=== PATIENT | female | born 1995 | race Hispanic/Latino ===

== ENCOUNTER 2020-02-04 20:45 | Inpatient (IN) | payer MEDICAID, OTHER ==
[~2020-02-04] VITALS: Ht 152.4 cm; Wt 69.4 kg
[2020-02-04] MEDS ORDERED: ONDANSETRON HCL 4 MG/2 ML VIAL ONE ×2 (21:10→23:15)
[2020-02-04 21:15] LABS: BASOPHILS % (AUTO) 0.5 % (0.0-5.0); EOSINOPHILS % (AUTO) 1.2 % (0.0-8.0); HEMATOCRIT 33.3 % (36-48); LYMPHOCYTES % (AUTO) 18.4 % (21.0-51.0); MEAN CORPUSCULAR HEMOGLOBIN 31.9 pg (27.0-33.0); MEAN CORPUSCULAR HGB CONC 36.3 g/dL (32.0-36.0); MEAN CORPUSCULAR VOLUME 87.9 fL (79-99); MONOCYTES % (AUTO) 4.2 % (3.0-13.0); NEUTROPHILS % (AUTO) 75.3 % (40.0-77.0); PLATELET COUNT (AUTO) 347 K/uL (130-400); RED BLOOD CELL COUNT(AUTO) 3.79 MIL/uL (4.00-5.50); RED CELL DISTRIBUTION WIDTH 11.4 % (11.0-15.5); WHITE BLOOD COUNT (AUTO) 18.4 K/uL (4.8-10.8)
[2020-02-04 21:26] LABS: CARBON DIOXIDE 26 mmol/L (21-32); CHLORIDE 101 mmol/L (101-111); CREATININE 0.8 mg/dL (0.5-1.5); GLOMERULAR FILTR. RATE CALC 94 mL/min (>60); GLUCOSE,RANDOM 132 mg/dL (70-105); SODIUM SERUM 139 mmol/L (136-145); UREA NITROGEN, BLOOD 12 mg/dL (7-18)
[2020-02-04 21:53] LABS: ALANINE AMINOTRANSFERASE 15 U/L (12-78); ALBUMIN 4.2 g/dL (3.5-5.0); AMYLASE 55 U/L (25-115); ASPARTATE AMINOTRANSFERASE 12 U/L (10-37); BILIRUBIN,TOTAL 0.3 mg/dL (0.2-1.0); HCG,QUANTITATIVE 12546 mIU/mL (0-5); LIPASE 175 U/L (114-286); TOTAL PROTEIN, SERUM 7.4 g/dL (6.0-8.3)
[2020-02-04 21:54] LABS: ALCOHOL, BLOOD < 3 mg/dL (0-10)
[2020-02-04] MEDS ORDERED: CEFAZOLIN SODIUM 1 GM VIAL ONE (22:29)
[2020-02-04] MEDS ORDERED: SODIUM CHLORIDE 0.9% 50 ML IV ONE (22:30)
[2020-02-04] MEDS ORDERED: LIDOCAINE PF 2% 5ML ABBOJECT ONE (23:14)
[2020-02-04] MEDS ORDERED: MIDAZOLAM HCL 1 MG/ML 2ML VIAL ONE (23:14)
[2020-02-04] MEDS ORDERED: DEXAMETHASONE SOD PHOSPHATE 10MG/ML 1ML VIAL ONE (23:14)
[2020-02-04] MEDS ORDERED: SUCCINYLCHOLINE 200MG/10ML SYR ONE (23:14)
[2020-02-04] MEDS ORDERED: FENTANYL CITRATE PF 50 MCG/1 ML 2ML VIAL ONE (23:15)
[2020-02-04] MEDS ORDERED: PROPOFOL 10 MG/ML 20ML VIAL IV ONE (23:15)
[2020-02-04] MEDS ORDERED: ROCURONIUM 10MG/1ML SYR 10 MG/ML ML ONE (23:24)
[2020-02-04 23:33] LABS: HEMATOCRIT 28.1 % (36-48)
[2020-02-04] MEDS ORDERED: ALBUMIN (HUMAN) 5% 250 ML IV ONE (23:39)
[2020-02-04] MEDS ORDERED: EPHEDRINE SULFATE 50 MG/ML AMPULE ONE (23:47)
[2020-02-05] VITALS (21 sets, daily range): BP systolic 98–141; BP diastolic 54–77
[2020-02-05] MEDS ORDERED: NEOSTIGMINE 5MG/5ML SYR IV ONE (00:03)
[2020-02-05] MEDS ORDERED: GLYCOPYRROLATE 1 MG/5 ML SYRINGE ONE (00:03)
[2020-02-05] MEDS ORDERED: MEPERIDINE-PF 25 MG/ML SYG ONE ×2 (00:25→00:36)
[2020-02-05] MEDS ORDERED: FENTANYL CITRATE PF 50 MCG/1 ML 2ML VIAL ONE (00:46)
--- NOTE | 2020-02-05 01:30 | NUR ---
Patient received from PACU; Patient came in via bed with IV of 0.9 Sodium Chloride infusing well L[place]ola Catheter patent flowing clear yellow urine. Patient oriented too light given. Plan of care discussed with patient verbalizes understanding.
[2020-02-05] MEDS ORDERED: LACTATED RINGERS 1000ML 1,000 ML IV SCH (02:15)
[2020-02-05] MEDS ORDERED: PROMETHAZINE HCL 25 MG/ML 1ML AMPULE IM PRN (02:15)
[2020-02-05] MEDS ORDERED: DiphenhydrAMINE HCL 50 MG/ML VIAL IV PRN (02:15)
[2020-02-05] MEDS ORDERED: MEPERIDINE-PF 50 MG/ML SYG IM PRN (02:15)
[2020-02-05] MEDS ORDERED: DOCU-116 PO (03:00)
[2020-02-05] MEDS ORDERED: PREN-202 PO (03:00)
[2020-02-05] MEDS: CALDOLOR 800MG+NS 250ML 250 ML IV SCH ×2 (03:14→10:11)
[2020-02-05] MEDS ORDERED: FLU VACC QS2020-21(6MOS UP)/PF 60 MCG/0.5 ML ML IM ONE (06:30)
--- NOTE | 2020-02-05 07:00 | NUR ---
Loyola: Loyola Catheter taken out patient tolerated it well. Advice to call for help if needed. Patient verbalizes understand.
[2020-02-05 08:08] LABS: HEMATOCRIT 25.3 % (36-48); MEAN CORPUSCULAR HEMOGLOBIN 30.7 pg (27.0-33.0); MEAN CORPUSCULAR HGB CONC 34.4 g/dL (32.0-36.0); MEAN CORPUSCULAR VOLUME 89.4 fL (79-99); RED BLOOD CELL COUNT(AUTO) 2.83 MIL/uL (4.00-5.50); RED CELL DISTRIBUTION WIDTH 11.9 % (11.0-15.5); WHITE BLOOD COUNT (AUTO) 9.6 K/uL (4.8-10.8)
[2020-02-05] MEDS ORDERED: DIPH,PERTUSS(ACELL),TET VAC/PF 0.5 ML VIAL IM ONE (09:00)
[2020-02-05] MEDS: LIDOCAINE 5% TOPICAL PATCH TP SCH (09:27)
[2020-02-05] MEDS ORDERED: HYDROCODONE/ACETAMINOPHEN 5/325 MG TAB PO PRN (10:00)
[2020-02-05] MEDS ORDERED: BISACODYL 10 MG SUPP.RECT RC PRN (10:00)
[2020-02-05] MEDS: SIMETHICONE 80 MG TAB.CHEW PO PRN ×2 (10:11→20:50)
[2020-02-05] MEDS: DOCUSATE SODIUM 100 MG CAP PO PRN ×2 (10:11→20:50)
[2020-02-05] MEDS: ACETAMINOPHEN-CODEINE 300/30MG TAB PO PRN (10:12)
[2020-02-05] MEDS ORDERED: ACETAMINOPHEN EXTRA STRENGTH 500 MG TABLET PO SCH (16:00)
[2020-02-05] MEDS ORDERED: DIPHENHYDRAMINE HCL 25 MG CAPSULE PO SCH (16:00)
[2020-02-05] MEDS ORDERED: SODIUM CHLORIDE 0.9% 1000ML 1,000 ML IV SCH (16:30)
[2020-02-05] MEDS: IBUPROFEN 800 MG TAB PO PRN (20:51)
--- NOTE | 2020-02-05 21:30 | NUR ---
LIDODERM PATCH TAKEN OUT. INCISION DRY AND INTACT.
[2020-02-06 03:40] VITALS: BP 125/62
[2020-02-06] MEDS: IBUPROFEN 800 MG TAB PO PRN (04:56)
[2020-02-06 07:21] VITALS: BP 115/58
[2020-02-06] MEDS: LIDOCAINE 5% TOPICAL PATCH TP SCH (09:05)
[2020-02-06] MEDS: SIMETHICONE 80 MG TAB.CHEW PO PRN (09:05)
[2020-02-06] MEDS: DOCUSATE SODIUM 100 MG CAP PO PRN (09:05)
[2020-02-06] MEDS: ACETAMINOPHEN-CODEINE 300/30MG TAB PO PRN (09:06)
[2020-02-06 11:15] VITALS: BP 125/74
--- NOTE | 2020-02-06 11:25 | NUR ---
DISCHARGE PT LEFT UNIT VIA WHEELCHAIR, ACCOMPANIED BY MOTHER. DENIED PAIN AND HAD NO COMPLAINTS. TRANSPORTED BY PERSONAL VEHICLE.
== END 2020-02-06 11:25 | disposition home or self-care (01) | DRG 817 ==
LOC: EDH 20:45 → EDHIP 20:46 → OBSVTOIN 20:46 → WSH 02-05 01:38
PROVIDERS: ADMIT Obstetrics & Gynecology; ATTEND Obstetrics & Gynecology
PROC: 30233N1 Transfusion of Nonautologous Red Blood Cells into Peripheral Vein, Percutaneous Approach (ICD-10-PCS; 2020-02-04)
PROC: 0UB50ZZ Excision of Right Fallopian Tube, Open Approach (ICD-10-PCS; principal; 2020-02-04 23:13)
PROC: 10T20ZZ Resection of Products of Conception, Ectopic, Open Approach (ICD-10-PCS; 2020-02-04 23:13)
PROC: 3E02340 Introduction of Influenza Vaccine into Muscle, Percutaneous Approach (ICD-10-PCS; 2020-02-05)
PROC: 3E0234Z Introduction of Serum, Toxoid and Vaccine into Muscle, Percutaneous Approach (ICD-10-PCS; 2020-02-05)
DX: O00.101 Right tubal pregnancy without intrauterine pregnancy (principal); K66.1 Hemoperitoneum; R10.0 Acute abdomen; Z23 Encounter for immunization
CPT/HCPCS: 36415; 36430; 76801; 80053; 82150; 83690; 84702; 85014; 85018; 85025; 85027; 86850; 86900; 86901; 86923; 90715; 93005; A4344; G0378; J0330; J0690; J1100; J1200; J1741; J2001; J2175; J2250; J2405; J2550; J2704; J2710; J3010; J3490; J7030; J7120; P9016; P9045; Q0163; Q2035

== ENCOUNTER 2022-03-07 19:38 | Emergency (ER) | payer BC, MEDICAID ==
[~2022-03-07] VITALS: Ht 154.9 cm; Wt 66.2 kg
[~2022-03-07 19:38] MED LIST: DOCU-116 PO; PREN-202 PO
[2022-03-07] MEDS ORDERED: ONDANSETRON 4MG INJ IVP ONE (20:00)
[2022-03-07] MEDS ORDERED: ONDANSETRON ODT 4MG TAB SL ONE (20:00)
[2022-03-07] MEDS: 0.9%NACL 1000ML 1,000 ML IV SCH (20:10)
[2022-03-07 20:15] LABS: BASOPHILS % (AUTO) 0.2 % (0.0-5.0); EOSINOPHILS % (AUTO) 0.1 % (0.0-8.0); HEMATOCRIT 43.7 % (36-48); LYMPHOCYTES % (AUTO) 6.7 % (21.0-51.0); MEAN CORPUSCULAR HEMOGLOBIN 31.3 pg (27.0-33.0); MEAN CORPUSCULAR HGB CONC 35.5 g/dL (32.0-36.0); MEAN CORPUSCULAR VOLUME 88.1 fL (79-99); MONOCYTES % (AUTO) 1.6 % (3.0-13.0); PLATELET COUNT (AUTO) 396 K/uL (130-400); RED BLOOD CELL COUNT(AUTO) 4.96 MIL/uL (4.00-5.50); RED CELL DISTRIBUTION WIDTH 11.7 % (11.0-15.5); WHITE BLOOD COUNT (AUTO) 16.7 K/uL (4.8-10.8)
[2022-03-07 20:20] LABS: APPEARANCE,URINE CLEAR (CLEAR); BILIRUBIN,URINE NEGATIVE (NEGATIVE); COLOR,URINE YELLOW (YELLOW); GLUCOSE, URINE (UA) NEGATIVE (NEGATIVE); KETONES,URINE 15 mg/dL (NEGATIVE); LEUKOCYTE ESTERASE ,URINE NEGATIVE Leu/uL (NEGATIVE); NITRATE,URINE NEGATIVE (NEGATIVE); OCCULT BLOOD,URINE LARGE (NEGATIVE); PH,URINE 6.5 (5.0-8.0); PROTEIN,URINE TRACE mg/dL (NEGATIVE); UROBILINOGEN,URINE 0.2 mg/dL (0.2-1.0)
[2022-03-07 20:30] LABS: CARBON DIOXIDE 26 mmol/L (21-32); CHLORIDE 97 mmol/L (101-111); GLOMERULAR FILTR. RATE CALC 72 mL/min (>60); GLUCOSE,RANDOM 144 mg/dL (70-105); POTASSIUM 3.7 mmol/L (3.5-5.1); SODIUM SERUM 139 mmol/L (136-145); UREA NITROGEN, BLOOD 9 mg/dL (7-18)
[2022-03-07 20:35] LABS: ALANINE AMINOTRANSFERASE 15 U/L (12-78); ALBUMIN 5.1 g/dL (3.5-5.0); ASPARTATE AMINOTRANSFERASE 15 U/L (10-37); HCG,QUALITATIVE URINE NEGATIVE (NEGATIVE); TOTAL PROTEIN, SERUM 8.9 g/dL (6.0-8.3)
[2022-03-07 20:38] LABS: LIPASE < 50 U/L (114-286)
[2022-03-07 20:42] LABS: WBC,URINE 0-1 /HPF (0-1)
[2022-03-07 20:43] LABS: BACTERIA,URINE Few /HPF (None Seen)
[2022-03-07 20:44] LABS: SQUAMOUS EPITHELIAL CELL,UR Few /HPF (0-2)
[2022-03-07] MEDS ORDERED: 0.9%NACL 1000ML 1,000 ML IV SCH (21:00)
[2022-03-07] MEDS ORDERED: ONDA4TAB10 PO (21:15)
[2022-03-07 22:13] VITALS: BP 124/58
== END 2022-03-07 22:12 | disposition home or self-care (01) ==
LOC: EDH 19:38
DX: E86.0 Dehydration (principal); R11.2 Nausea with vomiting, unspecified
CPT/HCPCS: 99284; 96374; 96361; 80053; 83690; 85025; 81001; 81025; 36415; J2405

== ENCOUNTER 2022-03-09 10:02 | Emergency (ER) | payer BC, MEDICAID ==
[~2022-03-09] VITALS: Ht 154.9 cm; Wt 65.8 kg
[~2022-03-09 10:02] MED LIST changes: +ONDA4TAB10 PO
[2022-03-09 10:23] LABS: BASOPHILS % (AUTO) 0.7 % (0.0-5.0); EOSINOPHILS % (AUTO) 0.8 % (0.0-8.0); HEMATOCRIT 40.9 % (36-48); LYMPHOCYTES % (AUTO) 23.9 % (21.0-51.0); MEAN CORPUSCULAR HEMOGLOBIN 31.4 pg (27.0-33.0); MEAN CORPUSCULAR HGB CONC 35.2 g/dL (32.0-36.0); MEAN CORPUSCULAR VOLUME 89.1 fL (79-99); MONOCYTES % (AUTO) 3.9 % (3.0-13.0); NEUTROPHILS % (AUTO) 70.3 % (40.0-77.0); PLATELET COUNT (AUTO) 360 K/uL (130-400); RED BLOOD CELL COUNT(AUTO) 4.59 MIL/uL (4.00-5.50); RED CELL DISTRIBUTION WIDTH 11.7 % (11.0-15.5); WHITE BLOOD COUNT (AUTO) 15.7 K/uL (4.8-10.8)
[2022-03-09] MEDS ORDERED: PANTOPRAZOLE 40 MG/VIAL IVP ONE (10:30)
[2022-03-09] MEDS ORDERED: ONDANSETRON 4MG INJ IVP ONE (10:30)
[2022-03-09] MEDS ORDERED: LACTATED RINGERS 1000ML 1,000 ML IV ONE (10:30)
[2022-03-09 10:37] LABS: ALBUMIN 4.3 g/dL (3.5-5.0); CREATININE 0.9 mg/dL (0.5-1.5); TOTAL PROTEIN, SERUM 7.6 g/dL (6.0-8.3)
[2022-03-09 10:38] LABS: POTASSIUM 2.9 mmol/L (3.5-5.1)
[2022-03-09] MEDS ORDERED: POTASSIUM CHLORIDE 10MEQ/100ML 10 MEQ/100 ML ML IV SCH (10:41)
[2022-03-09] MEDS ORDERED: POTASSIUM BICARB/CIT AC 25 MEQ TABLET.EFF PO SCH (10:41)
[2022-03-09] MEDS ORDERED: POTASSIUM BICARB/CIT AC 25 MEQ TABLET.EFF ONE (11:13)
[2022-03-09] MEDS ORDERED: POTASSIUM CHLORIDE 10MEQ/100ML 100 ML IV ONE (11:13)
[2022-03-09 11:39] LABS: AMPHET/METH SCREEN,URINE NEGATIVE (NEGATIVE); BARBITURATE SCREEN, URINE NEGATIVE (NEGATIVE); BENZODIAZEPINES SCREEN,URINE NEGATIVE (NEGATIVE); CANNABINOID SCREEN,URINE POSITIVE (NEGATIVE); COCAINE SCREEN,URINE NEGATIVE (NEGATIVE); OPIATE SCREEN,URINE NEGATIVE (NEGATIVE); PHENCYCLIDINE SCREEN,URINE NEGATIVE (NEGATIVE)
[2022-03-09] MEDS ORDERED: HALOPERIDOL INJ 5 MG/ML VIAL ONE (14:13)
[2022-03-09] MEDS ORDERED: HALOPERIDOL INJ 5 MG/ML VIAL IV SCH (14:30)
[2022-03-09] MEDS ORDERED: POTA-187 PO (15:50)
[2022-03-09 16:01] VITALS: BP 127/69
== END 2022-03-09 16:10 | disposition home or self-care (01) ==
LOC: EDH 10:02
DX: F12.10 Cannabis abuse, uncomplicated (principal); R11.10 Vomiting, unspecified; E87.6 Hypokalemia
CPT/HCPCS: 99284; 96365; 96375; 96366; 96361; 82550; 80053; 80305; 83690; 85025; 81025; 36415; J7120; J1630; J2405 ×2; C9113

== ENCOUNTER 2022-10-04 14:54 | Emergency (ER) | payer BC, MEDICAID ==
[~2022-10-04] VITALS: Ht 154.9 cm; Wt 64.0 kg
[~2022-10-04 14:54] MED LIST changes: +POTA-187 PO
[2022-10-04 15:14] LABS: APPEARANCE,URINE CLEAR (CLEAR); BILIRUBIN,URINE NEGATIVE (NEGATIVE); COLOR,URINE COLORLESS (YELLOW); GLUCOSE, URINE (UA) NEGATIVE (NEGATIVE); KETONES,URINE NEGATIVE (NEGATIVE); LEUKOCYTE ESTERASE ,URINE NEGATIVE Leu/uL (NEGATIVE); NITRATE,URINE NEGATIVE (NEGATIVE); OCCULT BLOOD,URINE NEGATIVE (NEGATIVE); PROTEIN,URINE NEGATIVE (NEGATIVE); UROBILINOGEN,URINE 0.2 mg/dL (0.2-1.0)
[2022-10-04 15:20] LABS: HCG,QUALITATIVE URINE POSITIVE (NEGATIVE)
[2022-10-04 16:00] LABS: BASOPHILS % (AUTO) 0.8 % (0.0-5.0); EOSINOPHILS % (AUTO) 1.4 % (0.0-8.0); HEMATOCRIT 36.1 % (36-48); LYMPHOCYTES % (AUTO) 22.6 % (21.0-51.0); MEAN CORPUSCULAR HEMOGLOBIN 31.1 pg (27.0-33.0); MEAN CORPUSCULAR HGB CONC 35.7 g/dL (32.0-36.0); MONOCYTES % (AUTO) 4.8 % (3.0-13.0); PLATELET COUNT (AUTO) 322 K/uL (130-400); RED BLOOD CELL COUNT(AUTO) 4.15 MIL/uL (4.00-5.50); RED CELL DISTRIBUTION WIDTH 11.6 % (11.0-15.5)
[2022-10-04] MEDS ORDERED: 0.9%NACL 1000ML 1,000 ML IV ONE (16:00)
[2022-10-04] MEDS ORDERED: ONDANSETRON 4MG INJ IVP ONE (16:00)
[2022-10-04 16:10] VITALS: BP 133/76
[2022-10-04 16:11] LABS: CARBON DIOXIDE 25 mmol/L (21-32); CHLORIDE 101 mmol/L (101-111); CREATININE 0.5 mg/dL (0.5-1.5); GLOMERULAR FILTR. RATE CALC 133 mL/min (>90); GLUCOSE,RANDOM 85 mg/dL (70-105); POTASSIUM 3.7 mmol/L (3.5-5.1); SODIUM SERUM 135 mmol/L (136-145); UREA NITROGEN, BLOOD 4 mg/dL (7-18)
[2022-10-04 16:37] LABS: ALANINE AMINOTRANSFERASE 21 U/L (12-78); ALBUMIN 4.2 g/dL (3.5-5.0); ASPARTATE AMINOTRANSFERASE 9 U/L (10-37); HCG,QUANTITATIVE 48588 mIU/mL (0-5); TOTAL PROTEIN, SERUM 7.2 g/dL (6.0-8.3)
[2022-10-04 16:40] LABS: LIPASE < 50 U/L (114-286)
== END 2022-10-04 19:36 | disposition home or self-care (01) ==
LOC: EDH 14:54
DX: O09.291 Supervision of pregnancy with other poor reproductive or obstetric history, first trimester (principal); Z3A.01 Less than 8 weeks gestation of pregnancy
CPT/HCPCS: 99284; 96374; 76801; 96361; 80053; 84702; 83690; 85025; 81003; 81025; 36415; J7030; J2405

== ENCOUNTER 2022-12-22 04:43 | Emergency (ER) | payer BC, MEDICAID ==
[~2022-12-22] VITALS: Ht 154.9 cm; Wt 67.1 kg
[2022-12-22] MEDS ORDERED: ONDANSETRON 4MG INJ IVP ONE (05:00)
[2022-12-22] MEDS ORDERED: LACTATED RINGERS 1000ML 1,000 ML IV ONE (05:00)
[2022-12-22 05:11] LABS: APPEARANCE,URINE CLOUDY (CLEAR); BILIRUBIN,URINE NEGATIVE (NEGATIVE); COLOR,URINE LIGHT-YELLOW (YELLOW); GLUCOSE, URINE (UA) NEGATIVE (NEGATIVE); KETONES,URINE NEGATIVE (NEGATIVE); LEUKOCYTE ESTERASE ,URINE 250 Leu/uL (NEGATIVE); NITRATE,URINE NEGATIVE (NEGATIVE); OCCULT BLOOD,URINE NEGATIVE (NEGATIVE); PH,URINE 7.5 (5.0-8.0); PROTEIN,URINE NEGATIVE (NEGATIVE); UROBILINOGEN,URINE 0.2 mg/dL (0.2-1.0)
[2022-12-22 05:19] LABS: ADD UA MICROSCOPIC YES
[2022-12-22 05:22] LABS: BACTERIA,URINE RARE /HPF (None Seen); RBC,URINE 0-1 /HPF (0-1); SQUAMOUS EPITHELIAL CELL,UR FEW /HPF (0-2)
[2022-12-22 05:25] LABS: BASOPHILS # (AUTO) 0.07 K/uL (0.00-0.20); BASOPHILS % (AUTO) 0.6 % (0.0-5.0); EOSINOPHILS # (AUTO) 0.17 K/uL (0.00-0.70); EOSINOPHILS % (AUTO) 1.5 % (0.0-8.0); HEMATOCRIT 30.9 % (36-48); IMMATURE GRANULOCYTE ABSOLUTE 0.07 K/uL (0-1); LYMPHOCYTES # (AUTO) 2.8 K/uL (1.0-4.8); LYMPHOCYTES % (AUTO) 25.5 % (21.0-51.0); MEAN CORPUSCULAR HEMOGLOBIN 32.7 pg (27.0-33.0); MEAN CORPUSCULAR HGB CONC 36.2 g/dL (32.0-36.0); MEAN CORPUSCULAR VOLUME 90.1 fL (79-99); MONOCYTES # (AUTO) 0.6 K/uL (0.1-1.0); MONOCYTES % (AUTO) 5.1 % (3.0-13.0); NEUTROPHILS # (AUTO) 7.3 K/uL (1.8-7.7); NEUTROPHILS % (AUTO) 66.7 % (40.0-77.0); PLATELET COUNT (AUTO) 251 K/uL (130-400); RED BLOOD CELL COUNT(AUTO) 3.43 MIL/uL (4.00-5.50); RED CELL DISTRIBUTION WIDTH 12.4 % (11.0-15.5)
[2022-12-22 05:40] LABS: CREATININE 0.4 mg/dL (0.5-1.5); POTASSIUM 3.1 mmol/L (3.5-5.1)
[2022-12-22 05:44] LABS: ALBUMIN 3.4 g/dL (3.5-5.0); BILIRUBIN,TOTAL 0.2 mg/dL (0.2-1.0); TOTAL PROTEIN, SERUM 6.9 g/dL (6.0-8.3)
[2022-12-22 08:09] VITALS: BP 107/60; PULSE 82; RESP 17; O2SAT 99
[2022-12-22] MEDS ORDERED: ONDA4TAB10 PO (08:40)
== END 2022-12-22 08:46 | disposition home or self-care (01) ==
LOC: EDH 04:43
DX: O26.892 Other specified pregnancy related conditions, second trimester (principal); K92.0 Hematemesis; Z3A.18 18 weeks gestation of pregnancy
CPT/HCPCS: 99284; 96374; 76805; 96361; 80053; 83690; 85025; 87088; 81001; 81025; 36415; J7120; J2405